=== PATIENT | female | born 1955 | race Caucasian/White ===

== ENCOUNTER 2021-07-24 18:05 | Emergency (ER) | payer OTHER, BC ==
[~2021-07-24] VITALS: Ht 167.6 cm; Wt 72.6 kg
--- NOTE | 2021-07-24 18:08 | NUR ---
Triaged and placed in room 6 for evaluation.
--- NOTE | 2021-07-24 18:10 | NUR ---
Patient came in from home with left middle finger lac sustained while "cutting sugar cane" per dtr. Minimal blood noted due to patient applying "coffee grounds" at home. Awaiting MD evaluation.
--- NOTE | 2021-07-24 18:14 | NUR ---
Finger wound rinsed with saline and betadine; soaking in tray awaiting lac repair.
[2021-07-24 18:16] VITALS: BP_SYST 162
--- NOTE | 2021-07-24 18:22 | NUR ---
Dr Neri at bedside to assess patient
[2021-07-24] MEDS ORDERED: DIPH-TET-PERTUS Vaccine 0.5 ML VIAL (ADACEL) I.M. ONE (18:30)
[2021-07-24] MEDS ORDERED: LIDOCAINE 1% 10 MG/ML, 20 ML MDV INJ ONE (18:30)
--- NOTE | 2021-07-24 19:00 | NUR ---
Report given to Berto WANG to assume care of patient
--- NOTE | 2021-07-24 19:04 | NUR ---
dr quinn bedside performing lac repair
--- NOTE | 2021-07-24 19:40 | NUR ---
DRESSING PLACED ON RIGHT INDEX FINGER. TOLERTAED WELL
[2021-07-24] MEDS ORDERED: SULFAMETHOXAZOLE/TRIMETHOPR DS 1 TABLET PO ONE (19:45)
--- NOTE | 2021-07-24 19:55 | NUR ---
Patient given written and verbal discharge instructions and verbalizes understanding. ER MD discussed with patient the results and treatment provided. Patient in stable condition. ID arm band removed. Rx of BACTRIM given. Patient educated on pain management and to follow up with PMD. Pain Scale 2/10. Opportunity for questions provided and answered. Medication side effect fact sheet provided.
[2021-07-24 20:02] VITALS: BP_SYST 162
== END 2021-07-24 20:02 | disposition home or self-care (01) ==
LOC: SED 18:05
DX: S61.313A Laceration without foreign body of left middle finger with damage to nail, initial encounter (principal); W26.0XXA Contact with knife, initial encounter; Y93.89 Activity, other specified; Y92.89 Other specified places as the place of occurrence of the external cause; Y99.8 Other external cause status
CPT/HCPCS: 12001; 90471; 90715; 99283; J2001